=== PATIENT | female | born 1960 | race Caucasian/White ===

== ENCOUNTER 2018-05-07 12:38 | Outpatient (CLI) | payer MEDICARE, MEDICAID ==
[~2018-05-07 12:38] MED LIST: ALBU18HF2 INH; ASPI-611 PO; ATOR40TA3 PO; BIOT10TA PO; CARV-50 PO; DOCU-28 PO; FURO-149 PO; MAGN400T39 PO; METF-438 PO; TICA90TA2 PO; TRAM50TA2 PO
[2018-05-07] MEDS ORDERED: BARIUM SULFATE 340 ML SUSP.RECON***PROCEDURE AREA ONLY**DONT ENTER PO ONE (13:06)
== END 2018-05-07 23:59 | disposition home or self-care (01) ==
LOC: RAD 12:38
PROVIDERS: ATTEND Family Medicine
DX: R13.14 Dysphagia, pharyngoesophageal phase (principal); K21.9 Gastro-esophageal reflux disease without esophagitis; J38.00 Paralysis of vocal cords and larynx, unspecified; I25.2 Old myocardial infarction; I10 Essential (primary) hypertension; E11.9 Type 2 diabetes mellitus without complications; M54.9 Dorsalgia, unspecified; G89.29 Other chronic pain; Z79.899 Other long term (current) drug therapy; Z88.1 Allergy status to other antibiotic agents
CPT/HCPCS: 74230

== ENCOUNTER 2018-10-14 04:55 | Outpatient (CLI) | payer MEDICARE, MEDICAID ==
[~2018-10-14 04:55] MED LIST changes: -ATOR40TA3 PO; +ATOR40TA7 PO
== END 2018-10-14 23:59 | disposition home or self-care (01) ==
LOC: DIABETIC 04:55
PROVIDERS: ATTEND Family Medicine
DX: E11.9 Type 2 diabetes mellitus without complications (principal); I10 Essential (primary) hypertension; M79.2 Neuralgia and neuritis, unspecified; E78.5 Hyperlipidemia, unspecified; G93.1 Anoxic brain damage, not elsewhere classified; D64.9 Anemia, unspecified; I69.959 Hemiplegia and hemiparesis following unspecified cerebrovascular disease affecting unspecified side; I25.2 Old myocardial infarction; J45.909 Unspecified asthma, uncomplicated; Z88.0 Allergy status to penicillin; Z79.84 Long term (current) use of oral hypoglycemic drugs
CPT/HCPCS: G0108

== ENCOUNTER 2018-11-18 03:37 | Outpatient (CLI) | payer MEDICARE, MEDICAID | END 2018-11-18 23:59 | disposition home or self-care (01) | LOC: DIABETIC 03:37 | PROVIDERS: ATTEND Family Medicine | DX: E11.9 Type 2 diabetes mellitus without complications (principal); D64.9 Anemia, unspecified; G93.1 Anoxic brain damage, not elsewhere classified; E78.5 Hyperlipidemia, unspecified; M79.2 Neuralgia and neuritis, unspecified; I10 Essential (primary) hypertension; Z79.899 Other long term (current) drug therapy | CPT/HCPCS: G0108 ==

== ENCOUNTER 2018-12-31 09:35 | Day surgery (SDC) | payer MEDICARE, MEDICAID ==
[2018-12-30 12:28] LABS: BASOPHILS % (AUTO) 0.9 % (0-1); EOSINOPHILS # (AUTO) 0.2 X10'3 (0-0.9); EOSINOPHILS % (AUTO) 4.1 % (0-6); HEMATOCRIT 40.4 % (35.0-45.0); LYMPHOCYTES % (AUTO) 38.8 % (21-51); MEAN CORPUSCULAR HEMOGLOBIN 27.7 PG (27.0-31.0); MEAN CORPUSCULAR HGB CONC 32.3 g/dL (33.0-36.5); MEAN PLATELET VOLUME 8.1 FL (7.4-10.4); MONOCYTES # (AUTO) 0.5 X10'3 (0-0.9); MONOCYTES % (AUTO) 9.5 % (2-12); NEUTROPHILS # (AUTO) 2.4 X10'3 (1.8-7.7); NEUTROPHILS % (AUTO) 46.7 % (42-75); PLATELET COUNT 290 X10'3 (140-440); RED CELL DISTRIBUTION WIDTH 14.6 % (11.5-14.5); WHITE BLOOD COUNT 5.2 X10'3 (4.5-11.0)
[2018-12-30 12:38] LABS: ALBUMIN 3.7 G/DL (3.4-5.0); ANION GAP 9 (8-16); BLOOD UREA NITROGEN 15 MG/DL (7-18); CALCIUM 9.1 MG/DL (8.5-10.1); CHLORIDE 103 MMOL/L (99-107); CREATININE 1.07 MG/DL (0.40-0.90); GLUCOSE 91 MG/DL (70-104); POTASSIUM 4.3 MMOL/L (3.5-5.1); SODIUM 137 MMOL/L (135-145); TOTAL CARBON DIOXIDE 25.3 MMOL/L (24-32); eGFR 53 ML/MIN
[2018-12-30 12:41] LABS: PARTIAL THROMBOPLASTIN TIME 27 SECONDS (22-32)
[2018-12-31] VITALS (11 sets, daily range): BP systolic 118–145; BP diastolic 64–94
[~2018-12-31] VITALS: Ht 165.1 cm; Wt 123.5 kg
[2018-12-31] MEDS ORDERED: diphenhydrAMINE 25mg capsule PO PRN (10:00)
[2018-12-31] MEDS ORDERED: normal saline 1,000 ML IV SCH (10:00)
[2018-12-31] MEDS ORDERED: LORazepam 0.5 MG tablet PO PRN (10:00)
[2018-12-31] MEDS ORDERED: sodium bicarbonate (8.4%) inj. 75 ML in dextrose 5% water 500ml 500 ML IV SCH (10:05)
[2018-12-31] MEDS ORDERED: nitroGLYCERIN-Tridil 50MG/D5W 250 ML IV ONE (11:15)
[2018-12-31] MEDS ORDERED: midazolam 2 mg/2 ml injection ONE (11:15)
[2018-12-31] MEDS ORDERED: fentaNYL/PF 50MCG/1 ML 2ML syringe ONE (11:16)
[2018-12-31] MEDS ORDERED: LIDOcaine 1% (10mg/ml)w/preservative injection 20ml MDV ONE (11:16)
[2018-12-31] MEDS ORDERED: iohexol 350MG/ML 100ml bottle IV ONE (11:16)
[2018-12-31] MEDS ORDERED: iohexol 350 MG/ML 50ML vial IV ONE (11:16)
[2018-12-31] MEDS ORDERED: heparin 1,000unit/ml 10ml vial 10 ML ONE (11:16)
[2018-12-31] MEDS ORDERED: verapamil 2.5 mg/ml inj IV ONE (11:18)
[2018-12-31] MEDS ORDERED: INSU3INS2 SQ (12:13)
[2018-12-31] MEDS ORDERED: METF-436 PO (12:13)
[2018-12-31] MEDS ORDERED: METF-438 PO (12:13)
[2018-12-31] MEDS ORDERED: LORA10TA61 PO (12:13)
[2018-12-31] MEDS ORDERED: CETI-102 PO (12:13)
[2018-12-31 15:30] LABS: ISTAT HGB ART 11.9 g/dl (12.0-16.0); ISTAT Hct ART 35 %PCV (35-48); ISTAT O2 SATURATION ARTERIAL 96 % (95-98); ISTAT SOURCE ART
[2018-12-31 15:30] LABS: ISTAT Hct MIX 35 %PCV (35-48); ISTAT O2 SATURATION MIX VENOUS 67 % (60-80); ISTAT SOURCE MIX
== END 2018-12-31 19:15 | disposition home or self-care (01) ==
LOC: SSTAY O 09:35
PROVIDERS: ATTEND Internal Medicine Cardiovascular Disease
DX: I25.10 Atherosclerotic heart disease of native coronary artery without angina pectoris (principal); E11.9 Type 2 diabetes mellitus without complications; I10 Essential (primary) hypertension; E78.5 Hyperlipidemia, unspecified; E66.9 Obesity, unspecified; Z95.5 Presence of coronary angioplasty implant and graft; Z68.42 Body mass index [BMI] 45.0-49.9, adult
CPT/HCPCS: 36415; 80048; 82803; 82948; 85014; 85025; 85610; 85730; 93005; 93460; 99152; 99153; A6257; J1644; J2001; J2250; J3010; J7030; Q0163; Q9967; A4620; J3490

== ENCOUNTER 2022-11-29 10:45 | Emergency (ER) | payer MEDICARE, MEDICAID ==
[~2022-11-29] VITALS: Ht 165.1 cm; Wt 125.0 kg
[~2022-11-29 10:45] MED LIST changes: +CETI-90 PO; -FURO-149 PO; +INSU3INS2 SQ; +LORA10TA61 PO; +METF-436 PO
[2022-11-29 10:59] VITALS: BP 159/83
[2022-11-29 11:20] LABS: BASOPHILS % (AUTO) 0.5 % (0-1); EOSINOPHILS # (AUTO) 0.2 X10'3 (0-0.9); EOSINOPHILS % (AUTO) 3.3 % (0-6); HEMATOCRIT 38.7 % (35.0-45.0); HEMOGLOBIN 12.8 g/dl (12.0-16.0); LYMPHOCYTES # (AUTO) 1.2 X10'3 (1.1-4.8); MEAN CORPUSCULAR HEMOGLOBIN 28.5 PG (27.0-31.0); MEAN CORPUSCULAR HGB CONC 33.1 g/dL (33.0-36.5); MEAN CORPUSCULAR VOLUME 86.2 FL (78-98); MEAN PLATELET VOLUME 7.9 FL (7.4-10.4); MONOCYTES # (AUTO) 0.5 X10'3 (0-0.9); MONOCYTES % (AUTO) 8.5 % (2-12); NEUTROPHILS % (AUTO) 66.7 % (42-75); PLATELET COUNT 295 X10'3 (140-440); RED BLOOD COUNT 4.49 X10'6 (4.20-5.60); RED CELL DISTRIBUTION WIDTH 14.7 % (11.5-14.5); WHITE BLOOD COUNT 5.9 X10'3 (4.5-11.0)
[2022-11-29 11:33] LABS: ALANINE AMINOTRANSFERASE 26 U/L (12-78); ALBUMIN 3.8 G/DL (3.4-5.0); ALBUMIN/GLOBULIN RATIO 1.2 (1.1-1.5); ALKALINE PHOSPHATASE 93 IU/L (46-116); ANION GAP 9 (8-16); ASPARTATE AMINO TRANSFERASE 19 U/L (10-37); BILIRUBIN,TOTAL 0.5 MG/DL (0.1-1.0); BLOOD UREA NITROGEN 12 MG/DL (7-18); BUN/CREATININE RATIO 11.2 (10.0-20.0); CALCIUM 9.5 MG/DL (8.5-10.1); CHLORIDE 102 MMOL/L (99-107); CREATININE 1.07 MG/DL (0.40-0.90); GLUCOSE 165 MG/DL (70-104); SODIUM 137 MMOL/L (135-145); TOTAL CARBON DIOXIDE 26.1 MMOL/L (24-32); TOTAL PROTEIN 7.1 G/DL (6.4-8.2); eGFR 52 ML/MIN
== END 2022-11-29 14:38 | disposition home or self-care (01) ==
LOC: ER 10:46
DX: R06.02 Shortness of breath (principal); R42 Dizziness and giddiness; E78.00 Pure hypercholesterolemia, unspecified; I11.9 Hypertensive heart disease without heart failure; J45.909 Unspecified asthma, uncomplicated; E11.9 Type 2 diabetes mellitus without complications; Z88.1 Allergy status to other antibiotic agents; Z79.899 Other long term (current) drug therapy; Z79.82 Long term (current) use of aspirin
CPT/HCPCS: 36415; 80053; 83880; 84484; 85025; 93005; 99284

== ENCOUNTER 2023-01-14 08:18 | Outpatient (CLI) | payer BC, MEDICAID | END 2023-01-14 23:59 | disposition home or self-care (01) | LOC: RT 08:18 | PROVIDERS: ATTEND Internal Medicine Critical Care Medicine | DX: J44.9 Chronic obstructive pulmonary disease, unspecified (principal); J84.112 Idiopathic pulmonary fibrosis | CPT/HCPCS: 94618 ==

== ENCOUNTER 2023-01-21 08:26 | Outpatient (CLI) | payer BC, MEDICAID | END 2023-01-21 23:59 | disposition home or self-care (01) | LOC: RT 08:26 | PROVIDERS: ATTEND Internal Medicine Critical Care Medicine | DX: J44.9 Chronic obstructive pulmonary disease, unspecified (principal); J84.112 Idiopathic pulmonary fibrosis | CPT/HCPCS: 94625; G0237 ==